=== PATIENT | male | born 1965 | race Asian ===

== ENCOUNTER 2023-07-02 13:48 | Emergency (ER) | payer BC ==
[~2023-07-02] VITALS: Ht 177.8 cm; Wt 99.8 kg
[2023-07-02 13:48] VITALS: BP_SYST 132; PULSE 61; RESP 18; TEMP 97.2; O2SAT 98
[2023-07-02] MEDS ORDERED: KETOROLAC TROMETHAMINE 60 MG/2 ML VIAL IM ONE (14:15)
[2023-07-02] MEDS ORDERED: DICL20GE TP (14:45)
[2023-07-02] MEDS ORDERED: IBUP-1971 PO (14:45)
[2023-07-02 19:54] VITALS: BP_SYST 132; PULSE 61; RESP 18; TEMP 97.2; O2SAT 98
== END 2023-07-02 15:10 | disposition home or self-care (01) ==
LOC: SED 13:48
DX: S42.021A Displaced fracture of shaft of right clavicle, initial encounter for closed fracture (principal); V49.49XA Driver injured in collision with other motor vehicles in traffic accident, initial encounter; Y93.89 Activity, other specified; Y92.411 Interstate highway as the place of occurrence of the external cause; Y99.8 Other external cause status
CPT/HCPCS: 99284; 29105; 73000; 73030; 96372; J1885